=== PATIENT | female | born 1980 | race Caucasian/White ===

== ENCOUNTER → 2016-09-30 | Outpatient (CLI) | payer OTHER ==
--- NOTE | 2016-09-30 11:52 | CT ---
EXAMINATION TYPE: CT brain wo con DATE OF EXAM: 09/30/2016 11:41 AM COMPARISON: 01/24/2015 INDICATION: ANSARI for unusual duration DLP: 1036 mGycm, Automated exposure control for dose reduction was used. CONTRAST: None CT of the brain is performed utilizing 3 mm thick sections through the posterior fossa and 3 mm thick sections through the remaining calvarium. Study is performed within 24 hours of arrival to the hosp ital. No abnormal hyperdensity is present to suggest an acute intracranial hemorrhage. No mass lesion is evident. No acute infarcts are evident. Ventricles and sulci are appropriate for the patient age. There is minimal mucosal thickening within ethmoid air cells. Remaining paranasal sinuses and mastoid air cells are clear. IMPRESSIONS: 1. Normal CT Brain
== END | disposition home or self-care (01) ==
LOC: RADCTMAIN 09:59
PROVIDERS: ATTEND Internal Medicine
DX: R51 Headache (principal)
CPT/HCPCS: 70450

== ENCOUNTER 2017-04-10 16:11 | Emergency (ER) | payer OTHER ==
[2017-04-10] MEDS ORDERED: SODIUM CHLORIDE 0.9% 1,000 ML IV ONE (18:14)
[2017-04-10] MEDS ORDERED: METOCLOPRAMIDE 5 MG/ML 2 ML VIAL IVP STA (18:14)
[2017-04-10] MEDS ORDERED: KETOROLAC 30 MG/ML 1 ML VIAL IVP STA (18:14)
[2017-04-10] MEDS ORDERED: diphenhydrAMINE 50 MG/ML 1 ML VIAL IVP STA (18:14)
--- NOTE | 2017-04-10 18:26 | ED ---
Headache HPI - General Chief Complaint: Headache Stated Complaint: Headache Time Seen by Provider: 04/10/17 18:06 Mode of arrival: ambulatory Limitations: no limitations - History of Present Illness Initial Comments: This is a 36-year-old female with a history of migraine headaches who presents emergency department for headache for the last 3 days. She states that it's left sided and posterior. It is typical for her headache to be in this position. She takes Fioricet for this at home however this has not improved her symptoms so she decided come emergency department she has associated nausea but no vomiting. She also has photophobia and phonophobia. No focal neurologic deficits. No visual changes. No fevers or chills. No other complaints. - Related Data Home Medications Medication Instructions Recorded Confirmed ARIPiprazole [Abilify] 20 mg PO DAILY 04/10/17 04/10/17 Budesonide-Formot 160-4.5 Mcg 2 puff INHALATION RT-BID PRN 04/10/17 04/10/17 [Symbicort 160-4.5 Mcg Inhaler] Butalb/APAP/Caff 50-325-40Mg 1 tab PO TID PRN 04/10/17 04/10/17 [Fioricet 50-325-40] Ipratropium [place] [Atrovent Hfa] 2 puff INHALATION RT-QID PRN 04/10/17 Norgestimate-Ethinyl Estradiol 1 tab PO DAILY 04/10/17 04/10/17 [Sprintec 28 Day Tablet] Omeprazole [PriLOSEC] 20 mg PO AC-BRKFST 04/10/17 04/10/17 Verapamil [Isoptin] 80 mg PO TID 04/10/17 04/10/17 busPIRone HCL [Buspar] 7.5 mg PO TID 04/10/17 04/10/17 Allergies Allergy/AdvReac Type Severity Reaction Status Date / Time Penicillins Allergy Rash/Hives Verified 04/10/17 16:37 prednisone AdvReac Shaky Verified 04/10/17 18:42 Review of Systems ROS Statement: Those systems with pertinent positive or pertinent negative responses have been documented in the HPI. ROS Other: All systems not noted in ROS Statement are negative. Past Medical History Past Medical History: Asthma Additional Past Medical History / Comment(s): migraines History of Any Multi-Drug Resistant Organisms: None Reported Past Surgical History: Section, Orthopedic Surgery Additional Past Surgical History / Comment(s): right knee Past Psychological History: Bipolar Smoking Status: Current every day smoker Past Alcohol Use History: Occasional Past Drug Use History: None Reported General Exam - General Exam Comments Initial Comments: Constitutional: Awake alert Appears comfortable Head: Normocephalic atraumatic Eyes: no conjunctival injection No scleral icterus EOMI, pupils are 5 mm reactive bilaterally Neck: No JVD Supple Heart: Regular rate rhythm normal S1-S2 no murmurs Lungs: Clear to auscultation bilaterally No wheezing No rales Abdomen: Soft nondistended nontender Extremities: Non edematous DP pulses intact Radial pulses intact Neuro: A&Ox3 cranial nerves II through XII are grossly intact, 5 out of 5 strength in upper and lower extremities bilaterally, no ataxia Psych: Appropriate mood and affect Limitations: no limitations Course Vital Signs 04/10/17 04/10/17 16:35 19:37 Temperature 97.8 F Pulse Rate 87 76 Respiratory 16 18 Rate Blood Pressure 143/90 143/83 O2 Sat by Pulse 100 98 Oximetry Medical Decision Making - Medical Decision Making Is a 36-year-old female presents emergency department for headache. The patient reported feeling much improved after Toradol, Reglan, and Benadryl. She has Fioricet for home. Told to follow-up with Dr. Sanchez and could speak to him about possibly starting Imitrex. She can return if she has worsening or changing symptoms. All questions were answered. Disposition Clinical Impression: Headache Disposition: HOME SELF-CARE Condition: Stable Instructions: Acute Headache (ED) Referrals: Pb Fitzgerald MD [Primary Care Provider] - 1-2 days
[2017-04-10 19:37] VITALS: RESP 18
[2017-04-10 20:23] VITALS: BP 140/87; PULSE 72; TEMP 98.7
== END 2017-04-10 20:21 | disposition home or self-care (01) ==
LOC: EC 16:11
DX: R51 Headache (principal); R11.0 Nausea; F31.9 Bipolar disorder, unspecified; F17.200 Nicotine dependence, unspecified, uncomplicated; Z79.3 Long term (current) use of hormonal contraceptives; Z79.899 Other long term (current) drug therapy; Z88.0 Allergy status to penicillin; Z88.8 Allergy status to other drugs, medicaments and biological substances
CPT/HCPCS: 99283; 96374; 96375 ×2; 96361 ×3; J1200; J2765; J1885

== ENCOUNTER 2018-08-16 14:00 | Emergency (ER) | payer OTHER ==
[2018-08-16 14:17] VITALS: TEMP 97.6
[2018-08-16] MEDS ORDERED: KETOROLAC 60 MG/2 ML VIAL IM STA (14:59)
--- NOTE | 2018-08-16 15:02 | ED ---
General Adult HPI - General Chief complaint: Back Pain/Injury Stated complaint: Lower back pain Source: patient, RN notes reviewed Mode of arrival: ambulatory Limitations: no limitations - History of Present Illness Initial comments: Patient is a 38-year-old female who presents the emergency department with complaints of low back pain that started yesterday. She reports she was getting up off the floor when she felt a pop in her back. The pain started on the left side and then spread to the entire low back area. She also complains of pain going down the left back leg. Admits to some tingling down the left leg. Denies bowel or bladder incontinence, saddle anesthesia, numbness, fever, chills, shortness of breath, chest pain, abdominal pain, headache, visual changes, or any other complaints. - Related Data Home Medications Medication Instructions Recorded Confirmed ARIPiprazole [Abilify] 20 mg PO DAILY 04/10/17 04/10/17 Budesonide-Formot 160-4.5 Mcg 2 puff INHALATION RT-BID PRN 04/10/17 04/10/17 [Symbicort 160-4.5 Mcg Inhaler] Butalb/APAP/Caff 50-325-40Mg 1 tab PO TID PRN 04/10/17 04/10/17 [Fioricet 50-325-40] Ipratropium [place] [Atrovent Hfa] 2 puff INHALATION RT-QID PRN 04/10/17 Norgestimate-Ethinyl Estradiol 1 tab PO DAILY 04/10/17 04/10/17 [Sprintec 28 Day Tablet] Omeprazole [PriLOSEC] 20 mg PO AC-BRKFST 04/10/17 04/10/17 Verapamil [Isoptin] 80 mg PO TID 04/10/17 04/10/17 busPIRone HCL [Buspar] 7.5 mg PO TID 04/10/17 04/10/17 Previous Rx's Medication Instructions Recorded Ibuprofen [Motrin] 600 mg PO Q8HR PRN #30 tab 08/04/17 Ibuprofen [Motrin] 600 mg PO Q6HR PRN #28 08/16/18 Lidocaine [Lidoderm 5% Patch] 1 patch TRANSDERM DAILY PRN #7 08/16/18 patch Allergies Allergy/AdvReac Type Severity Reaction Status Date / Time Penicillins Allergy Rash/Hives Verified 08/16/18 14:17 prednisone AdvReac Shaky Verified 08/16/18 14:17 Review of Systems ROS Statement: Those systems with pertinent positive or pertinent negative responses have been documented in the HPI. ROS Other: All systems not noted in ROS Statement are negative. Past Medical History Past Medical History: Asthma, Hypertension Additional Past Medical History / Comment(s): migraines History of Any Multi-Drug Resistant Organisms: None Reported Past Surgical History: Section, Orthopedic Surgery Additional Past Surgical History / Comment(s): right knee, shoulder Past Psychological History: Anxiety, Bipolar, Depression Smoking Status: Current every day smoker Past Alcohol Use History: Occasional Past Drug Use History: None Reported General Exam Limitations: no limitations General appearance: alert, in no apparent distress Head exam: Present: atraumatic, normocephalic Eye exam: Present: normal appearance Respiratory exam: Present: normal lung sounds bilaterally Cardiovascular Exam: Present: regular rate, normal rhythm, other (DP and PT pulses palpable and strong bilaterally.) Extremities exam: Present: normal inspection, full ROM, normal capillary refill Back exam: Present: normal inspection, tenderness (Left lumbar area.). Absent: vertebral tenderness Neurological exam: Present: alert, oriented X3, reflexes normal (Patellar.), other (Ambulates with a slight limp.) Psychiatric exam: Present: normal affect, normal mood Skin exam: Present: warm, dry Course Vital Signs 08/16/18 08/16/18 08/16/18 14:15 16:40 18:25 Temperature 97.6 F 97.6 F Pulse Rate 87 74 74 Respiratory 20 18 18 Rate Blood Pressure 121/72 119/69 119/69 O2 Sat by Pulse 99 99 99 Oximetry Medical Decision Making - Medical Decision Making Lumbar x-ray reveals no acute fracture or dislocation in the lumbar spine. Given Toradol for pain. Will prescribe ibuprofen and lidocaine patch. - Lab Data Lab Results 08/16/18 08/16/18 Range/Units 17:15 17:15 Urine Color Yellow Urine Appearance Clear (Clear) Urine pH 6.5 (5.0-8.0) Ur Specific [place] 1.040 H (1.001-1.035) Urine Protein 1+ H (Negative) Urine Glucose (UA) Negative (Negative) Urine Ketones Negative (Negative) Urine Blood Negative (Negative) Urine Nitrite Negative (Negative) Urine Bilirubin Negative (Negative) Urine Urobilinogen 4.0 (<2.0) mg/dL Ur Leukocyte Esterase Negative (Negative) Urine RBC 3 (0-5) /hpf Urine WBC 2 (0-5) /hpf Ur Squamous Epith Cells 7 H (0-4) /hpf Urine Mucus Many H (None) /hpf Urine HCG, Qual Not Detected (Not Detectd) Disposition Clinical Impression: Strain of lumbar region Disposition: HOME SELF-CARE Condition: Good Instructions: Acute Low Back Pain (ED) Additional Instructions: Follow-up with your PCP in 1 to 2 days. Return to the emergency department if your symptoms worsen or any other concerns. Prescriptions: Ibuprofen [Motrin] 600 mg PO Q6HR PRN #28 PRN Reason: Pain Lidocaine [Lidoderm 5% Patch] 1 patch TRANSDERM DAILY PRN #7 patch PRN Reason: Pain Is patient prescribed a controlled substance at d/c from ED?: No Referrals: Pb Fitzgerald MD [Primary Care Provider] - 1-2 days Time of Disposition: 17:58
--- NOTE | 2018-08-16 15:18 | XR ---
EXAMINATION TYPE: XR lumbar spine 2 or 3V DATE OF EXAM: 08/16/2018 CLINICAL HISTORY: Low back pain after standing injury TECHNIQUE: Frontal and lateral images of the lumbar spine are obtained. COMPARISON: None FINDINGS: There are 5 lumbar type vertebral bodies identified. The lumbar spine shows satisfactory alignment without evidence of acute fracture or dislocation. Vertebral body heights and disk space he ights are within normal limits. The overlying soft tissue appears unremarkable. IMPRESSION: No acute fracture or dislocation is seen in the lumbar spine.
[2018-08-16 16:41] VITALS: BP 119/69; PULSE 74; RESP 18
[2018-08-16 17:47] LABS: Appearance,Urine Clear (Clear); Bilirubin,Urine Negative (Negative); Blood,Urine Negative (Negative); Color,Urine Yellow; Glucose,Urine (UA) Negative (Negative); Ketones,Urine Negative (Negative); Leukocyte Esterase,Urine Negative (Negative); Mucus,Urine Many /hpf; Nitrite,Urine Negative (Negative); PH, Urine 6.5 (5.0-8.0); Protein,Urine 1+ (Negative); RBC,Urine 3 /hpf (0-5); Squamous Epithelial Cell,Urine 7 /hpf (0-4); WBC,Urine 2 /hpf (0-5)
== END 2018-08-16 18:25 | disposition home or self-care (01) ==
LOC: EC 14:00
DX: S39.012A Strain of muscle, fascia and tendon of lower back, initial encounter (principal); J45.909 Unspecified asthma, uncomplicated; I10 Essential (primary) hypertension; F41.9 Anxiety disorder, unspecified; F32.9 Major depressive disorder, single episode, unspecified; F17.200 Nicotine dependence, unspecified, uncomplicated; Z79.3 Long term (current) use of hormonal contraceptives; Z79.899 Other long term (current) drug therapy; Z88.0 Allergy status to penicillin; Z88.8 Allergy status to other drugs, medicaments and biological substances; X50.9XXA Other and unspecified overexertion or strenuous movements or postures, initial encounter; Y93.89 Activity, other specified
CPT/HCPCS: 81001; 81025; 72100; 99283; 96372; J1885

== ENCOUNTER 2018-10-18 09:31 | Day surgery (SDC) | payer OTHER ==
[2018-10-15 14:24] VITALS: BMI 27.9
[~2018-10-18 09:31] MED LIST: LACTATED RINGERS 1,000 ML IV SCH
[2018-10-18 09:59] VITALS: RESP 18; TEMP 97.2
[2018-10-18] MEDS ORDERED: LIDOCAINE 1% 20 ML VIAL (10MG/ML) FOR IV START INTRADERMA ONE (10:06)
[2018-10-18] MEDS ORDERED: PROPOFOL 10 MG/ML 20 ML VIAL IV ONE (11:26)
--- NOTE | 2018-10-18 11:29 | P.GSHP ---
History of Present Illness H&P Date: 10/18/18 Chief Complaint: Epigastric abdominal pain, GERD 's is a 29-year-old female who presents today for EGD. She's had issues with GERD and epigastric dull pain. Past Medical History Past Medical History: Asthma, COPD, GERD/Reflux, Hypertension Additional Past Medical History / Comment(s): migraines, "gagging/vomitng" past couple months, History of Any Multi-Drug Resistant Organisms: None Reported Past Surgical History: Section, Orthopedic Surgery Additional Past Surgical History / Comment(s): left shoulder rotator cuff, rt knee athroscopy x 6, Past Anesthesia/Blood Transfusion Reactions: No Reported Reaction Smoking Status: Current every day smoker - Past Family History Mother Family Medical History: No Reported History Medications and Allergies Home Medications Medication Instructions Recorded Confirmed Type Omeprazole [PriLOSEC] 20 mg PO DAILY 04/10/17 10/18/18 History Verapamil [Isoptin] 80 mg PO TID 04/10/17 10/18/18 History busPIRone HCL [Buspar] 7.5 mg PO Q6HR PRN 04/10/17 10/15/18 History ARIPiprazole [Abilify] 20 mg PO DAILY 10/15/18 10/15/18 History Acetaminophen Tab [Tylenol Tab] 650 mg PO Q6H PRN 10/15/18 10/18/18 History Albuterol Inhaler [Ventolin Hfa 2 puff INHALATION BID PRN 10/15/18 10/18/18 History Inhaler] [place] 1 tab PO QAM 10/15/18 10/15/18 History Naproxen 500 mg PO Q6HR PRN 10/15/18 10/15/18 History Allergies Allergy/AdvReac Type Severity Reaction Status Date / Time Penicillins Allergy Rash/Hives Verified 10/15/18 14:11 Surgical - Exam Vital Signs Temp Pulse Resp BP Pulse Ox 97.2 F L 83 18 142/91 97 10/18/18 09:58 10/18/18 09:58 10/18/18 09:58 10/18/18 09:58 10/18/18 09:58 - General well developed, well nourished, no distress - Eyes PERRL - ENT normal pinna - Neck no masses - Respiratory normal expansion - Cardiovascular Rhythm: regular - Abdomen Abdomen: soft, non tender Assessment and Plan Assessment: GERD, epigastric dull pain. We'll perform EGD.
--- NOTE | 2018-10-18 11:37 | P.OP ---
Date of Procedure: 10/18/18 Preoperative Diagnosis: GERD Epigastric pain Postoperative Diagnosis: Mild antral gastritis Mild esophagitis No evidence of hiatal hernia Procedure(s) Performed: EGD Anesthesia: MAC Surgeon: Simba Acevedo Pathology: other (Antrum, esophagus) Condition: stable Disposition: PACU Description of Procedure: The patient's placed on the endoscopy table in the lateral position. She received IV sedation. The gastroscope placed oropharynx and passed in the esophagus and into the stomach. The scope was then placed through the pylorus. The first and second portion of the duodenum appeared normal. Scope was then brought back the antrum and this was mildly inflamed. A biopsies performed. The scope was then retroflexed and the remainder of the stomach normal. There is no evidence of any hiatal hernia. The GE junction was at 40 cm. The distal esophagus appeared mildly inflamed a biopsies performed. Approximately esophagus. Normal. Scope withdrawn for patient. Due to the patient's symptoms epigastric pain a HIDA scan was ordered.
[2018-10-18 12:06] VITALS: BP 145/87; PULSE 67
== END 2018-10-18 12:42 | disposition home or self-care (01) ==
LOC: ORWHC2ENDO 09:31
PROVIDERS: ATTEND Surgery
DX: K29.50 Unspecified chronic gastritis without bleeding (principal); K21.9 Gastro-esophageal reflux disease without esophagitis; J44.9 Chronic obstructive pulmonary disease, unspecified; I10 Essential (primary) hypertension; F17.210 Nicotine dependence, cigarettes, uncomplicated; F41.9 Anxiety disorder, unspecified; F31.9 Bipolar disorder, unspecified; F32.9 Major depressive disorder, single episode, unspecified; G43.909 Migraine, unspecified, not intractable, without status migrainosus; Z79.899 Other long term (current) drug therapy; Z88.0 Allergy status to penicillin
CPT/HCPCS: 81025; 88305; 43239; J2704

== ENCOUNTER → 2018-10-22 | Outpatient (CLI) | payer OTHER ==
--- NOTE | 2018-10-22 09:05 | NM ---
EXAMINATION TYPE: NM hepatobiliary w CCK DATE OF EXAM: 10/22/2018 COMPARISON: NONE HISTORY: Epigastric pain per order. Reflux and vomiting symptoms per patient also. TECHNIQUE: After the intravenous administration of 4.73 mCi Tc 99m Mebrofenin hepatobiliary scintigra phy is performed. Immediate images post injection. FINDINGS: There is satisfactory initial accumulation of tracer by the liver. The gallbladder is visualized wit hin 20 minutes. The small bowel activity is noted within 35 minutes. At one hour CCK was administer ed, patient was injected with 1.4 mcg of Kinevac, and gallbladder ejection fraction is calculated at 86 %, elevated from the normal range. Therefore there is no scintigraphic evidence of cystic or commo n bile duct obstruction to suggest acute cholecystitis. IMPRESSION: Ejection fraction is 86%, some consider this abnormal or a hyperkinetic response. It is n oted however patient remained asymptomatic upon injection of Kinevac.
== END ==
LOC: RADNMMAIN 06:51
PROVIDERS: ATTEND Surgery
DX: R10.13 Epigastric pain (principal)
CPT/HCPCS: 78227; A9537; J2805

== ENCOUNTER 2018-11-04 07:35 | Day surgery (SDC) | payer OTHER ==
[2018-10-30 15:08] VITALS: BMI 27.9
[~2018-11-04 07:35] MED LIST changes: +DEXAMETHASONE SOD PHOSPHATE 10 MG/ML 1 ML VIAL IV ONE; +HEPARIN SODIUM,PORCINE 5,000 UNIT/ML 1 ML VIAL SQ ONE; +MORPHINE SULFATE 4 MG/ML SYRINGE IV PRN; +ONDANSETRON 4 MG/2 ML VIAL IVP ONE; +ceFAZolin IN SWFI 2 GM/20 ML SYRINGE IVP ONE
[2018-11-04] MEDS ORDERED: LIDOCAINE 1% 20 ML VIAL (10MG/ML) FOR IV START INTRADERMA ONE (08:24)
[2018-11-04] MEDS ORDERED: DEXAMETHASONE SOD PHOS (MDV) 100 MG/10 ML VIAL IVP ONE (08:30)
[2018-11-04] MEDS ORDERED: ONDANSETRON 4 MG/2 ML VIAL IVP ONE (08:30)
[2018-11-04 08:36] VITALS: RESP 16
--- NOTE | 2018-11-04 09:19 | P.GSHP ---
History of Present Illness H&P Date: 11/04/18 Chief Complaint: Right upper quadrant pain This a 38-year-old female who presents today for laparoscopic cholecystectomy. Patient's had complaints of right upper quadrant pain. Her recent HIDA scan shows an elevated ejection fraction of 86% Past Medical History Past Medical History: Asthma, COPD, GERD/Reflux, Hypertension Additional Past Medical History / Comment(s): migraines, "gagging/vomitng" past couple months, History of Any Multi-Drug Resistant Organisms: None Reported Past Surgical History: Section, Orthopedic Surgery Additional Past Surgical History / Comment(s): left shoulder rotator cuff, rt knee athroscopy x 6, Past Anesthesia/Blood Transfusion Reactions: No Reported Reaction Smoking Status: Current every day smoker - Past Family History Mother Family Medical History: No Reported History Medications and Allergies Home Medications Medication Instructions Recorded Confirmed Type Omeprazole [PriLOSEC] 20 mg PO DAILY 04/10/17 11/04/18 History Verapamil [Isoptin] 80 mg PO TID 04/10/17 11/04/18 History busPIRone HCL [Buspar] 7.5 mg PO Q6HR PRN 04/10/17 11/04/18 History ARIPiprazole [Abilify] 20 mg PO DAILY 10/15/18 10/30/18 History Acetaminophen Tab [Tylenol Tab] 650 mg PO Q6H PRN 10/15/18 11/04/18 History Albuterol Inhaler [Ventolin Hfa 2 puff INHALATION BID PRN 10/15/18 11/04/18 History Inhaler] [place] 1 tab PO QAM 10/15/18 11/04/18 History Naproxen 500 mg PO Q6HR PRN 10/15/18 11/04/18 History Lisinopril [Zestril] 10 mg PO DAILY 10/30/18 11/04/18 History Allergies Allergy/AdvReac Type Severity Reaction Status Date / Time Penicillins Allergy Rash/Hives Verified 11/04/18 08:08 Surgical - Exam Vital Signs Temp Pulse Resp BP Pulse Ox 97.3 F L 91 16 147/81 96 11/04/18 08:26 11/04/18 08:26 11/04/18 08:26 11/04/18 08:26 11/04/18 08:26 - General well developed, well nourished, no distress - Eyes PERRL - ENT normal pinna - Neck no masses - Respiratory normal expansion - Cardiovascular Rhythm: regular Assessment and Plan Assessment: Right upper quadrant pain Abnormal HIDA scan We'll perform laparoscopic cholecystectomy.
[2018-11-04] MEDS ORDERED: MIDAZOLAM 2 MG/2 ML VIAL ONE (09:22)
[2018-11-04] MEDS ORDERED: KETOROLAC 30 MG/ML 1 ML VIAL ONE (09:22)
[2018-11-04] MEDS ORDERED: LIDOCAINE 1% INJ 10MG/ML (20 ML MDV) ONE (09:22)
[2018-11-04] MEDS ORDERED: NEOSTIGMINE 1 MG/ML 10 ML VIAL ONE ×2 (09:22)
[2018-11-04] MEDS ORDERED: HYDROmorphone (PF) 1 MG/ML ONE (09:22)
[2018-11-04] MEDS ORDERED: ROCURONIUM BROMIDE 10 MG/ML 10 ML VIAL IV ONE (09:22)
[2018-11-04] MEDS ORDERED: GLYCOPYRROLATE 0.2 MG/ML 2 ML VIAL ONE (09:22)
[2018-11-04] MEDS ORDERED: PROPOFOL 10 MG/ML 20 ML VIAL IV ONE (09:22)
[2018-11-04] MEDS ORDERED: SUCCINYLCHOLINE CHLORIDE 100 MG/5 ML SYR IV ONE (09:22)
[2018-11-04] MEDS ORDERED: fentaNYL (PF) 50 MCG/ML 2 ML AMP ONE (09:22)
[2018-11-04] MEDS ORDERED: BUPIVACAIN-EPI 0.5%-1:200,000 30 ML VIAL SQ ONE (09:41)
[2018-11-04] MEDS ORDERED: LACTATED RINGERS 1,000 ML IV ONE (09:57)
--- NOTE | 2018-11-04 10:10 | P.OP ---
Date of Procedure: 11/04/18 Preoperative Diagnosis: Cholecystitis Postoperative Diagnosis: Cholecystitis Procedure(s) Performed: Laparoscopic cholecystectomy Anesthesia: JAG Surgeon: Simba Acevedo Estimated Blood Loss (ml): 5 Pathology: other (Gallbladder) Condition: stable Disposition: PACU Description of Procedure: The patient was placed on the operating table. The patient received a general endotracheal tube anesthesia. The patients abdomen was prepped and draped in the usual sterile fashion. Through an infraumbilical stab incision, the fascia of the anterior abdominal wall was grasped with a pair of Kochers and then the Veress needle was placed in the peritoneal cavity. Position of the Veress needle was confirmed with positive drop test. The abdomen was then insufflated. After adequate insufflation, the 10 mm trocar was placed in the peritoneal cavity. Following this the laparoscope was placed in the peritoneal cavity. The patient was placed in the head-up, right side up position and then a 5 mm trocar was placed in the right lateral and right subcostal position under direct visualization. A 8 mm trocar was placed in the epigastric position. The gallbladder was grasped in the fundus and infundibulum. Traction on the gallbladder was placed in the lateral and the cephalad positions. The triangle of Calot was visualized.. The cystic duct was bluntly dissected until the union of the cystic duct and common bile duct was seen. The cystic duct was then divided and sealed with the Harmonic scissors. A PDS Endoloop was then placed throughout the cystic duct stump. The cystic artery divided and sealed with the Harmonic scissors. The gallbladder was then removed from the liver bed using Harmonic scissors. The gallbladder was then extracted through the epigastric port site. Operative field was checked for any bleeding spots and Harmonic scissors was used to coagulate the liver bed. The abdomen was irrigated. The trocars were removed. The skin was closed using interrupted 3-0 Vicryl suture. Dermabond dressing were applied. The patient tolerated the procedure well.
[2018-11-04 10:15] VITALS: TEMP 97.2
[2018-11-04] MEDS: HYDROmorphone 0.5 MG/0.5 ML SYRINGE IVP PRN ×2 (10:26→10:32)
[2018-11-04 11:34] VITALS: BP 100/62; PULSE 61
== END 2018-11-04 12:10 | disposition home or self-care (01) ==
LOC: OR 07:35
PROVIDERS: ATTEND Surgery
DX: K81.1 Chronic cholecystitis (principal); F17.200 Nicotine dependence, unspecified, uncomplicated; I10 Essential (primary) hypertension; J44.9 Chronic obstructive pulmonary disease, unspecified; K21.9 Gastro-esophageal reflux disease without esophagitis; Z88.0 Allergy status to penicillin; Z90.49 Acquired absence of other specified parts of digestive tract; Z79.899 Other long term (current) drug therapy
CPT/HCPCS: 81025; 88304; 47562; J2250; J1644; J2710; J2405; J2001; J3010; J1885; J1170 ×2; J1100; J0330; J2704; J0690

== ENCOUNTER 2018-11-11 19:22 | Emergency (ER) | payer OTHER ==
[2018-11-11] MEDS ORDERED: HYDROmorphone 0.5 MG/0.5 ML SYRINGE IVP STA (20:13)
[2018-11-11] MEDS ORDERED: ONDANSETRON 4 MG/2 ML VIAL IVP STA (20:13)
[2018-11-11] MEDS ORDERED: SODIUM CHLORIDE 0.9% 1,000 ML IV STA (20:13)
--- NOTE | 2018-11-11 20:27 | ED ---
Abdominal Pain HPI - General Chief Complaint: Abdominal Pain Stated Complaint: Abd pain, just had gallbladder removed Time Seen by Provider: 11/11/18 20:09 Source: patient Mode of arrival: ambulatory Limitations: no limitations - History of Present Illness Initial Comments: 38-year-old female patient who is one-week status post cholecystectomy presents to the emergency department today for evaluation of increased right upper quadrant abdominal pain. Patient states the pain has been increasing since Sunday. Patient denies any nausea or vomiting with this. States she has been having frequent green watery bowel movements. States that she has been taking [place] 7. 5/325 for her symptoms which does seem to help somewhat. She denies any fevers or chills with this. Denies any hematochezia or melena. Denies any redness or drainage around the incision sites. Patient denies any recent rash, shortness breath, chest pain, back pain, numbness, tingling, dizziness, weakness, hematuria, dysuria, urinary urgency, urinary frequency, headache, visual changes, or any other complaints. - Related Data Home Medications Medication Instructions Recorded Confirmed Omeprazole [PriLOSEC] 20 mg PO DAILY 04/10/17 11/11/18 Verapamil [Isoptin] 80 mg PO TID 04/10/17 11/11/18 ARIPiprazole [Abilify] 20 mg PO DAILY 10/15/18 11/11/18 [place] 1 tab PO QAM 10/15/18 11/11/18 Naproxen 500 mg PO Q6HR PRN 10/15/18 11/11/18 Lisinopril [Zestril] 10 mg PO DAILY 10/30/18 11/11/18 Ipratropium [place] [Atrovent Hfa] 2 puff INHALATION RT-BID 11/11/18 11/11/18 Previous Rx's Medication Instructions Recorded Docusate [Colace] 100 mg PO BID #20 capsule 11/04/18 HYDROcodone/APAP 7.5-325MG [[place] 1 tab PO Q6HR PRN 3 Days #10 tab 11/04/18 7.5-325] Allergies Allergy/AdvReac Type Severity Reaction Status Date / Time Penicillins Allergy Rash/Hives Verified 11/11/18 20:22 Review of Systems ROS Statement: Those systems with pertinent positive or pertinent negative responses have been documented in the HPI. ROS Other: All systems not noted in ROS Statement are negative. Past Medical History Past Medical History: Asthma, COPD, GERD/Reflux, Hypertension Additional Past Medical History / Comment(s): migraines, "gagging/vomitng" past couple months, History of Any Multi-Drug Resistant Organisms: None Reported Past Surgical History: Section, Cholecystectomy, Orthopedic Surgery Additional Past Surgical History / Comment(s): left shoulder rotator cuff, rt knee athroscopy x 6, Past Anesthesia/Blood Transfusion Reactions: No Reported Reaction Past Psychological History: Anxiety, Bipolar, Depression Smoking Status: Current every day smoker Past Alcohol Use History: None Reported Past Drug Use History: None Reported - Past Family History Mother Family Medical History: No Reported History General Exam Limitations: no limitations General appearance: alert, in no apparent distress, other (Physical well- developed, well-nourished adult female patient in no acute distress. Vital signs upon presentation are temperature 98.3F, pulse 74, respirations 18, blood pressure 143/91, pulse ox 100% on room air.) Eye exam: Present: normal appearance, PERRL, EOMI. Absent: scleral icterus, conjunctival injection, periorbital swelling ENT exam: Present: normal exam, normal oropharynx, mucous membranes moist Respiratory exam: Present: normal lung sounds bilaterally. Absent: respiratory distress, wheezes, rales, rhonchi, stridor Cardiovascular Exam: Present: regular rate, normal rhythm, normal heart sounds. Absent: systolic murmur, diastolic murmur, rubs, gallop, clicks GI/Abdominal exam: Present: soft, tenderness (Right upper quadrant, midepigastric tenderness), normal bowel sounds, other (Multiple laparoscopic incisions to the abdomen, well approximated, no erythema, no drainage.). Absent: distended, guarding, rebound, rigid Neurological exam: Present: alert, oriented X3, CN II-XII intact Psychiatric exam: Present: normal affect, normal mood Skin exam: Present: warm, dry, intact, normal color. Absent: rash Course Vital Signs 11/11/18 11/11/18 11/11/18 19:45 21:41 22:38 Temperature 98.3 F 98.1 F Pulse Rate 74 78 66 Respiratory 18 16 18 Rate Blood Pressure 143/91 139/79 132/82 O2 Sat by Pulse 100 98 97 Oximetry Medical Decision Making - Medical Decision Making 38-year-old female patient presents to the emergency department today for denny luation of right upper quadrant abdominal pain. She is status post cholecystectomy 1 week. Physical examination did reveal right upper quadrant tenderness. Labs reviewed and did reveal mild elevation of AST and ALTs. CT abdomen and pelvis was obtained and showed no acute intra-abdominal process. Upon reevaluation patient is feeling better. She does have an appointment with her surgeon tomorrow. We will discharge for follow-up. Return parameters were discussed in detail. She verbalizes understanding and agrees with this plan. - Lab Data Result diagrams: 11/11/18 20:27 11/11/18 20:27 Lab Results 11/11/18 11/11/18 11/11/18 Range/Units 20:27 20:27 20:27 WBC 9.9 (3.8-10.6) k/uL RBC 4.39 (3.80-5.40) m/uL Hgb 13.1 (11.4-16.0) gm/dL Hct 39.6 (34.0-46.0) % MCV 90.2 (80.0-100.0) fL MCH 29.9 (25.0-35.0) pg MCHC 33.1 (31.0-37.0) g/dL RDW 13.0 (11.5-15.5) % Plt Count 362 (150-450) k/uL Neutrophils % 55 % Lymphocytes % 35 % Monocytes % 6 % Eosinophils % 3 % Basophils % 1 % Neutrophils # 5.4 (1.3-7.7) k/uL Lymphocytes # 3.4 (1.0-4.8) k/uL Monocytes # 0.5 (0-1.0) k/uL Eosinophils # 0.3 (0-0.7) k/uL Basophils # 0.1 (0-0.2) k/uL Sodium 138 (137-145) mmol/L Potassium 4.2 (3.5-5.1) mmol/L Chloride 106 (98-107) mmol/L Carbon Dioxide 23 (22-30) mmol/L Anion Gap 9 mmol/L BUN 9 (7-17) mg/dL Creatinine 0.84 (0.52-1.04) mg/dL Est GFR (CKD-EPI)AfAm >90 (>60 ml/min/1.73 sqM) Est GFR (CKD-EPI)NonAf 88 (>60 ml/min/1.73 sqM) Glucose 99 (74-99) mg/dL Calcium 9.5 (8.4-10.2) mg/dL Total Bilirubin 0.3 (0.2-1.3) mg/dL AST 95 H (14-36) U/L ALT 211 H (9-52) U/L Alkaline Phosphatase 78 (38-126) U/L Total Protein 7.6 (6.3-8.2) g/dL Albumin 4.1 (3.5-5.0) g/dL Amylase 60 (30-110) U/L Lipase 83 (23-300) U/L Urine Color Yellow Urine Appearance Cloudy H (Clear) Urine pH 6.0 (5.0-8.0) Ur Specific [place] 1.013 (1.001-1.035) Urine Protein Negative (Negative) Urine Glucose (UA) Negative (Negative) Urine Ketones Negative (Negative) Urine Blood Trace H (Negative) Urine Nitrite Negative (Negative) Urine Bilirubin Negative (Negative) Urine Urobilinogen <2.0 (<2.0) mg/dL Ur Leukocyte Esterase Negative (Negative) Urine RBC 1 (0-5) /hpf Urine WBC 3 (0-5) /hpf Ur Squamous Epith Cells 8 H (0-4) /hpf Urine Bacteria Rare H (None) /hpf Urine Mucus Occasional H (None) /hpf - Radiology Data Radiology results: report reviewed, image reviewed CT abdomen and pelvis with contrast was obtained. Report was reviewed in its entirety. Impression by Dr. Latricia Bedolla shows no acute abdominal process. T here is) sec fluid noted likely physiologic. Disposition Clinical Impression: Postoperative abdominal pain Disposition: HOME SELF-CARE Condition: Good Instructions (If sedation given, give patient instructions): Abdominal Pain (ED) Additional Instructions: Keep appointment with Dr. Acevedo as you have planned tomorrow. Return to the emergency department immediately for any new, worsening, or concerning symptoms. Is patient prescribed a controlled substance at d/c from ED?: No Referrals: Pb Fitzgerald MD [Primary Care Provider] - 1-2 days Simba Acevedo MD [STAFF PHYSICIAN] - 1-2 days Time of Disposition: 22:25
[2018-11-11 20:41] LABS: Basophils # (A) 0.1 k/uL (0-0.2); Basophils % (A) 1 %; Eosinophils # (A) 0.3 k/uL (0-0.7); Eosinophils % (A) 3 %; HCT 39.6 % (34.0-46.0); HGB 13.1 gm/dL (11.4-16.0); Lymphocytes # (A) 3.4 k/uL (1.0-4.8); Lymphocytes % (A) 35 %; MCH 29.9 pg (25.0-35.0); MCHC 33.1 g/dL (31.0-37.0); MCV 90.2 fL (80.0-100.0); Mean Platelet Volume 7.9; Monocytes # (A) 0.5 k/uL (0-1.0); Monocytes % (A) 6 %; Neutrophils # (A) 5.4 k/uL (1.3-7.7); Neutrophils % (A) 55 %; Platelet Count 362 k/uL (150-450); RBC 4.39 m/uL (3.80-5.40); WBC 9.9 k/uL (3.8-10.6)
[2018-11-11 20:45] LABS: ALT 211 U/L (9-52); AST 95 U/L (14-36); Albumin 4.1 g/dL (3.5-5.0); Alkaline Phosphatase 78 U/L (38-126); Amylase 60 U/L (30-110); Anion Gap 9 mmol/L; Blood Urea Nitrogen 9 mg/dL (7-17); Calcium 9.5 mg/dL (8.4-10.2); Carbon Dioxide 23 mmol/L (22-30); Chloride 106 mmol/L (98-107); Glucose 99 mg/dL (74-99); Lipase 83 U/L (23-300); Potassium 4.2 mmol/L (3.5-5.1); Sodium 138 mmol/L (137-145); Total Bilirubin 0.3 mg/dL (0.2-1.3); Total Protein 7.6 g/dL (6.3-8.2)
[2018-11-11 21:00] LABS: Appearance,Urine Cloudy (Clear); Bacteria,Urine Rare /hpf; Bilirubin,Urine Negative (Negative); Blood,Urine Trace (Negative); Color,Urine Yellow; Glucose,Urine (UA) Negative (Negative); Ketones,Urine Negative (Negative); Leukocyte Esterase,Urine Negative (Negative); Mucus,Urine Occasional /hpf; Nitrite,Urine Negative (Negative); Protein,Urine Negative (Negative); RBC,Urine 1 /hpf (0-5); Specific Gravity,Urine 1.013 (1.001-1.035); Squamous Epithelial Cell,Urine 8 /hpf (0-4); Urobilinogen,Urine <2.0 mg/dL (<2.0); WBC,Urine 3 /hpf (0-5)
--- NOTE | 2018-11-11 21:53 | CT ---
EXAMINATION TYPE: CT abdomen pelvis w con DATE OF EXAM: 11/11/2018 COMPARISON: None HISTORY: Right upper quadrant abdominal pain post cholecystectomy. CT DLP: 706.2 mGycm Automated exposure control for dose reduction was used. TECHNIQUE: Helical acquisition of images was performed from the lung bases through the pelvis. CONTRAST: Performed without Oral Contrast and with IV Contrast, patient injected with 100ml mL of Iso jossy 300. FINDINGS: LUNG BASES: No significant abnormality is appreciated. LIVER/GB: No significant abnormality is appreciated. Gallbladder fossa has normal appearance. PANCREAS: No significant abnormality is seen. SPLEEN: No significant abnormality is seen. ADRENALS: No significant abnormality is seen. KIDNEYS: No significant abnormality is seen. PERITONEAL CAVITY: There is a mild volume of gravity-dependent fluid in the cul-de-sac of the pelvis , greater on the right. This is likely physiologic. RETROPERITONEAL ADENOPATHY: None visualized REPRODUCTIVE ORGANS: No significant abnormality is seen URINARY BLADDER: No significant abnormality is seen. PELVIC ADENOPATHY: None visualized. BOWEL: No significant abnormality is seen. Terminal ileum and appendix have normal appearance. OSSEOUS STRUCTURES: No significant abnormality is seen. OTHER: No acute vascular findings. IMPRESSION: ABDOMEN: NO ACUTE ABDOMINAL PROCESS. PELVIS: CUL-DE-SAC FLUID NOTED, LIKELY PHYSIOLOGIC.
[2018-11-11 22:39] VITALS: BP 132/82; PULSE 66; RESP 18; TEMP 98.1
== END 2018-11-11 22:38 | disposition home or self-care (01) ==
LOC: EC 19:22
DX: G89.18 Other acute postprocedural pain (principal); R10.11 Right upper quadrant pain; R10.811 Right upper quadrant abdominal tenderness; R10.816 Epigastric abdominal tenderness; K21.9 Gastro-esophageal reflux disease without esophagitis; I10 Essential (primary) hypertension; J44.9 Chronic obstructive pulmonary disease, unspecified; F31.9 Bipolar disorder, unspecified; F17.200 Nicotine dependence, unspecified, uncomplicated; Z79.899 Other long term (current) drug therapy; Z88.0 Allergy status to penicillin; Z98.890 Other specified postprocedural states; Z90.49 Acquired absence of other specified parts of digestive tract
CPT/HCPCS: 36415; 80053; 82150; 83690; 85025; 81001; 74177; 99284; 96374; 96375; 96361; J2405; J1170; Q9967

== ENCOUNTER 2019-04-15 23:24 | Emergency (ER) | payer OTHER ==
[2019-04-15 23:38] VITALS: RESP 16; TEMP 98.7
[2019-04-16] MEDS ORDERED: IBUPROFEN 600 MG STARTER PACK 4 TAB BTL PO STA (01:14)
[2019-04-16] MEDS ORDERED: ACET/COD 300 MG/30 MG STARTER PACK 6 TAB BTL PO STA (01:14)
[2019-04-16] MEDS ORDERED: CEPHALEXIN 500MG STARTER PACK 4 CAP BTL PO STA (01:14)
--- NOTE | 2019-04-16 01:24 | XR ---
EXAM: XR Left Wrist Complete, 3 or More Views CLINICAL HISTORY: ITS.REASON XR Reason: Pain TECHNIQUE: Frontal, lateral and oblique views of the left wrist. COMPARISON: No relevant prior studies available. FINDINGS: Bones/joints: No acute fracture. Soft tissues: No radiopaque foreign body. IMPRESSION: No acute fracture.
--- NOTE | 2019-04-16 01:27 | XR ---
EXAM: XR Left Hand Complete, 3 or More Views CLINICAL HISTORY: ITS.REASON XR Reason: Pain TECHNIQUE: Frontal, lateral and oblique views of the left hand. COMPARISON: No relevant prior studies available. FINDINGS: Bones/joints: No acute fracture. Soft tissues: No radiopaque foreign body. IMPRESSION: No acute fracture.
--- NOTE | 2019-04-16 01:47 | ED ---
Extremity Problem HPI - General Chief complaint: Extremity Problem,Nontraumatic Stated complaint: Hand Injury Time Seen by Provider: 04/16/19 00:08 Source: patient, RN notes reviewed, old records reviewed Mode of arrival: ambulatory Limitations: no limitations - History of Present Illness Initial comments: Patient is a 38-year-old female presents emergency room today with chief complaint of left hand pain. Patient reports that she has a blister over her left hand. She started new job where she is doing a lot of and movements of wrist movements. She also lives of left wrist pain. At this time Patient states she is also on antibiotic ointment for blister of her hand. She states she's had worsening pain with movement. She denies any other complaints. - Related Data Home Medications Medication Instructions Recorded Confirmed Omeprazole [PriLOSEC] 20 mg PO DAILY 04/10/17 11/11/18 Verapamil [Isoptin] 80 mg PO TID 04/10/17 11/11/18 ARIPiprazole [Abilify] 20 mg PO DAILY 10/15/18 11/11/18 [place] 1 tab PO QAM 10/15/18 11/11/18 Naproxen 500 mg PO Q6HR PRN 10/15/18 11/11/18 Lisinopril [Zestril] 10 mg PO DAILY 10/30/18 11/11/18 Ipratropium [place] [Atrovent Hfa] 2 puff INHALATION RT-BID 11/11/18 11/11/18 Previous Rx's Medication Instructions Recorded Docusate [Colace] 100 mg PO BID #20 capsule 11/04/18 HYDROcodone/APAP 7.5-325MG [[place] 1 tab PO Q6HR PRN 3 Days #10 tab 11/04/18 7.5-325] Cephalexin [Keflex] 500 mg PO Q6HR 3 Days #12 cap 04/16/19 Ibuprofen 400 mg PO TID #20 tablet 04/16/19 Mupirocin 2% Oint [Bactroban 2% 1 applic TOPICAL TID #60 gm 04/16/19 Oint] Allergies Allergy/AdvReac Type Severity Reaction Status Date / Time Penicillins Allergy Rash/Hives Verified 04/15/19 23:38 Review of Systems ROS Statement: Those systems with pertinent positive or pertinent negative responses have been documented in the HPI. ROS Other: All systems not noted in ROS Statement are negative. Past Medical History Past Medical History: Asthma, COPD, GERD/Reflux, Hypertension Additional Past Medical History / Comment(s): migraines, "gagging/vomitng" past couple months, History of Any Multi-Drug Resistant Organisms: None Reported Past Surgical History: Section, Cholecystectomy, Orthopedic Surgery Additional Past Surgical History / Comment(s): left shoulder rotator cuff, rt knee athroscopy x 6, Past Anesthesia/Blood Transfusion Reactions: No Reported Reaction Past Psychological History: Anxiety, Bipolar, Depression Smoking Status: Current every day smoker Past Alcohol Use History: None Reported Past Drug Use History: None Reported - Past Family History Mother Family Medical History: No Reported History General Exam - General Exam Comments Initial Comments: 38-year-old female. No distress. Alert and oriented. Limitations: no limitations General appearance: alert, in no apparent distress Head exam: Present: atraumatic, normocephalic, normal inspection Eye exam: Present: normal appearance, PERRL, EOMI. Absent: scleral icterus, conjunctival injection, periorbital swelling ENT exam: Present: normal exam, mucous membranes moist Neck exam: Present: normal inspection. Absent: tenderness, meningismus, lymphadenopathy Respiratory exam: Present: normal lung sounds bilaterally. Absent: respiratory distress, wheezes, rales, rhonchi, stridor Cardiovascular Exam: Present: regular rate GI/Abdominal exam: Present: soft, normal bowel sounds. Absent: distended, tenderness, guarding, rebound, rigid Extremities exam: Present: normal inspection, full ROM, normal capillary refill. Absent: tenderness, pedal edema, joint swelling, calf tenderness Left Forearm Wrist exam: Present: normal inspection. Absent: full ROM (Patient reports pain with flexion.) Hand Wrist exam: Present: normal inspection, full ROM, tenderness (Patient sent tenderness and evidence of a blister that is open fits measuring 2 cm over the thenar eminence of the left hand.) Back exam: Present: normal inspection Neurological exam: Present: alert, oriented X3, CN II-XII intact Psychiatric exam: Present: normal affect, normal mood Skin exam: Present: warm, dry, intact, normal color. Absent: rash Course Vital Signs 04/15/19 23:35 Temperature 98.7 F Pulse Rate 77 Respiratory 16 Rate Blood Pressure 157/94 O2 Sat by Pulse 99 Oximetry Procedures - Orthopedic Splinting/Casting Injury #1 Side: left Upper Extremity Injury Location: wrist Upper Extremity Immobilizer: Pedrito wrap, synthetic pre-padded splint Medical Decision Making - Medical Decision Making 38-year-old female presents with left wrist and hand pain after a new job. She has evidence of blisters with some minor infection over the site. She is given a dose of Keflex. Hand and wrist x-rays are negative acute process. Patient's hCG consistent with strain or sprain from her new job. I discussed the Patient should follow-up with primary care doctor. Patient was placed on anti- inflammatory medicine and given a splint for wrist injury. - Radiology Data Radiology results: report reviewed Wrist x-rays negative for acute fracture. Hand x-rays negative for acute fracture. Disposition Clinical Impression: Left wrist sprain, Blister of left hand Disposition: HOME SELF-CARE Condition: Good Instructions (If sedation given, give patient instructions): Blister (ED), Wrist Sprain (ED) Additional Instructions: Patient advised to follow-up with primary care doctor. Wear the Pedrito wrap and splint as discussed. Keep the blister clean. Take the antibiotic as prescribed. Return to emergency department if any alarming signs or symptoms occur. Prescriptions: Mupirocin 2% Oint [Bactroban 2% Oint] 1 applic TOPICAL TID #60 gm Ibuprofen 400 mg PO TID #20 tablet Cephalexin [Keflex] 500 mg PO Q6HR 3 Days #12 cap Is patient prescribed a controlled substance at d/c from ED?: No Referrals: Pb Fitzgerald MD [Primary Care Provider] - 1-2 days Lencho Jernigan MD [Medical Doctor] - 1-2 days Time of Disposition: 01:53
[2019-04-16 02:07] VITALS: BP 142/86; PULSE 80
== END 2019-04-16 02:07 | disposition home or self-care (01) ==
LOC: EC 23:24
DX: S63.502A Unspecified sprain of left wrist, initial encounter (principal); S60.522A Blister (nonthermal) of left hand, initial encounter; J44.9 Chronic obstructive pulmonary disease, unspecified; K21.9 Gastro-esophageal reflux disease without esophagitis; I10 Essential (primary) hypertension; F31.9 Bipolar disorder, unspecified; F17.200 Nicotine dependence, unspecified, uncomplicated; Z79.3 Long term (current) use of hormonal contraceptives; Z79.899 Other long term (current) drug therapy; Z88.0 Allergy status to penicillin
CPT/HCPCS: 99284

== ENCOUNTER → 2019-09-19 | Outpatient (CLI) | payer OTHER ==
--- NOTE | 2019-09-19 08:41 | MR ---
EXAMINATION TYPE: MR brain wo con DATE OF EXAM: 09/19/2019 COMPARISON: MR [facility] 02/22/2013. CT September 30, 2016. HISTORY: Occipital neuralgia of left side TECHNIQUE: Multiplanar, multisequence imaging of the brain and brainstem is performed without IV cont rast. FINDINGS: Diffusion weighted images demonstrate no evidence of a recent infarct or other diffusion abnormality. There is no extraaxial fluid collection or significant white matter signal abnormality. The ventricu lar system and cisternal spaces are normal in size and appearance. The brain volume is age appropria te. Midline structures demonstrate normal morphology. The craniocervical junction appears within normal limits. Normal vascular flow voids are present. Moderate mucosal thickening bilateral ethmoid sinuses and mild mucosal thickening bilateral maxillary sinuses redemonstrated. Remainder visualized paranas al sinuses are clear. Globes are intact bilaterally. IMPRESSION: Stable chronic paranasal sinus disease otherwise unremarkable study.
== END | disposition home or self-care (01) ==
LOC: RADMRIMAIN 07:35
PROVIDERS: ATTEND Psychiatry & Neurology Neurology
DX: M54.81 Occipital neuralgia (principal)
CPT/HCPCS: 70551